=== PATIENT | female | born 1955 | race African-American/Black ===

== ENCOUNTER 2018-01-09 17:45 | Emergency (ER) | payer OTHER, MEDICAID ==
[~2018-01-09] VITALS: Ht 157.5 cm; Wt 103.0 kg
[~2018-01-09 17:45] MED LIST: ADVA250A INH; ALBU6.7H INH; BENA5TAB PO; CIPR500T4 PO; CYMB30CA PO; GLUCTAB PO; HYDR-3533 PO; LEVEINJ SQ; LINA290C PO; LORTA10 PO; METR-1 PO; NEBI20 PO; NITR0.4S SL; SOMA350T PO; ZOLP10TA3 PO; ZYPR5TAB PO
[2018-01-09 17:57] VITALS: BP 136/69; PULSE 73; RESP 18; TEMP 98.3; O2SAT 100
[2018-01-09 19:33] LABS: BILIRUBIN, URINE NEG (NEG); BLOOD, URINE NEG (NEG); GLUCOSE,URINE NEG (NEG); KETONE, URINE NEG (NEG); NITRITE,URINE NEG (NEG); PH, URINE 7.5 (5.0-8.5); SQUAMOUS EPITHELIAL CELL URINE 4 /hpf (0-5); URINE COLOR YELLOW (YELLW/STRAW); URINE LEUKOCYTE ESTERASE NEG (NEG)
[2018-01-09 19:39] VITALS: BP_SYST 190; BP_SYST 200; BP_DIAS 81; PULSE 64; RESP 20; O2SAT 100
[2018-01-09 19:48] LABS: ALT (GPT) 19 U/L (10-53)
[2018-01-09] MEDS ORDERED: METF500T PO (19:49)
[2018-01-09] MEDS ORDERED: PREG25 PO (19:49)
[2018-01-09] MEDS ORDERED: AMBI10TA PO (19:49)
[2018-01-09] MEDS ORDERED: OMEP20TA93 PO (19:49)
[2018-01-09] MEDS ORDERED: ALBU6.7H INH (19:49)
[2018-01-09] MEDS ORDERED: HYDR-3516 PO (19:49)
[2018-01-09] MEDS ORDERED: NEBI20 PO (19:49)
[2018-01-09] MEDS ORDERED: LEVEMIR SQ (19:49)
[2018-01-09] MEDS ORDERED: ADVA250A INH (19:49)
[2018-01-09] MEDS ORDERED: SOMA250T PO (19:49)
--- NOTE | 2018-01-09 19:50 | RADRPT ---
EXAM DATE: 01/09/2018 7:25 PM EDT AGE/SEX: 62 years / Female INDICATIONS: Generalized weakness. Blurry vision. CLINICAL DATA: This is the patient's initial encounter. Patient reports that signs and symptoms have been present for 1 day and indicates a pain score of 0/10. MEDICAL/SURGICAL HISTORY: Diabetes. Cerebrovascular disease. Hypertension. Appendectomy. Cholecy stectomy. Hysterectomy. RADIATION DOSE: 37.54 CTDI (mGy) COMPARISON: [facility] – [place], CT BRAIN W/O CONTRAST, 11/25/2011. . TECHNIQUE: CT of the head without contrast. Using automated exposure control and adjustment of the mA and/or kV according to patient size, radiation dose was kept as low as reasonably achievable to ob tain optimal diagnostic quality images. FINDINGS: Cerebrum: The ventricles are normal for age. No evidence of midline shift, mass lesion, hemorrhage or acute infarction. No extraaxial fluid collections are seen. Posterior Fossa: The cerebellum and brainstem are intact. The 4th ventricle is midline. The cerebe llopontine angle is unremarkable. Extracranial: The visualized portion of the orbits is intact. Skull: The calvaria is intact. No evidence of skull fracture. CONCLUSION: 1. Negative noncontrast head CT Electronically signed by: Jordan Bolden MD 01/09/2018 7:49 PM EDT
[2018-01-09 19:53] LABS: AUTOMATED NEUTROPHIL # 5.5 TH/MM3 (1.8-7.7); BASOPHIL # 0.1 TH/MM3 (0-0.2); BASOPHIL % 1.3 % (0.0-2.0); EOSINOPHIL # 0.1 TH/MM3 (0-0.4); EOSINOPHIL % 1.4 % (0.0-4.0); HEMATOCRIT 36.4 % (35.0-46.0); HEMOGLOBIN 12.4 GM/DL (11.6-15.3); LYMPH % 29.9 % (9.0-44.0); LYMPHOCYTE # 2.8 TH/MM3 (1.0-4.8); MEAN CORPUSCULAR HEMOGLOBIN 30.7 PG (27.0-34.0); MEAN CORPUSCULAR HGB CONC 34.1 % (32.0-36.0); MEAN PLATELET VOLUME 11.3 FL (7.0-11.0); MONO % 9.2 % (0.0-8.0); MONOCYTE # 0.9 TH/MM3 (0-0.9); NEUT % 58.2 % (16.0-70.0); PLATELET COUNT 224 TH/MM3 (150-450); RED BLOOD COUNT 4.05 MIL/MM3 (4.00-5.30); RED CELL DISTRIBUTION WIDTH 13.7 % (11.6-17.2); WHITE BLOOD COUNT 9.4 TH/MM3 (4.0-11.0)
[2018-01-09 20:12] LABS: ALBUMIN 3.1 GM/DL (3.4-5.0); ALKALINE PHOSPHATASE 102 U/L (45-117); AST (GOT) 29 U/L (15-37); BICARBONATE 24.9 MEQ/L (21.0-32.0); BLOOD UREA NITROGEN 19 MG/DL (7-18); CALCIUM 9.4 MG/DL (8.5-10.1); CHLORIDE 107 MEQ/L (98-107); CREATININE 0.94 MG/DL (0.50-1.00); GLOMERULAR FILTRATION RATE 73 ML/MIN (>89); GLUCOSE,RANDOM 135 MG/DL (74-106); MAGNESIUM 1.7 MG/DL (1.5-2.5); SODIUM (NA) 142 MEQ/L (136-145); TOTAL BILIRUBIN ADULT 0.4 MG/DL (0.2-1.0); TOTAL PROTEIN 7.1 GM/DL (6.4-8.2); TROPONIN I LESS THAN 0.02 NG/ML (0.02-0.05)
[2018-01-09 20:25] VITALS: BP_SYST 207; BP_SYST 223; BP_SYST 231; BP_DIAS 100; BP_DIAS 86; RESP 16; RESP 18; RESP 20
[2018-01-09] MEDS ORDERED: cloNIDine HCL 0.1 MG TAB PO ONE (20:30)
[2018-01-09 21:00] VITALS: BP 196/87; PULSE 63; RESP 18; O2SAT 99
--- NOTE | 2018-01-09 21:11 | RADRPT ---
EXAM DATE: 01/09/2018 8:44 PM EDT AGE/SEX: 62 years / Female INDICATIONS: Syncopal episode. CLINICAL DATA: This is the patient's initial encounter. Patient reports that signs and symptoms have been present for 1 day and indicates a pain score of 0/10. MEDICAL/SURGICAL HISTORY: . Hypertension. Chronic obstructive pulmonary disease. Asthma. None . COMPARISON: [facility] – [place], CHEST SINGLE AP, 10/22/2015. . FINDINGS: A single AP view of the chest demonstrates the lungs to be symmetrically aerated without evidence of mass, infiltrate or effusion. The cardiomediastinal contours are unremarkable. Osseous structures a re intact. There are overlying electrocardiogram leads. CONCLUSION: No acute cardiopulmonary disease. Electronically signed by: Jordan Bolden MD 01/09/2018 9:10 PM EDT
[2018-01-09] MEDS ORDERED: MECL-62 PO (21:20)
--- NOTE | 2018-01-09 21:22 | PD ---
HPI Chief Complaint: Eye Problems/Injury Time Seen by Provider: 18:15 Travel History International Travel<30 days: No Contact w/Intl Traveler<30days: No Traveled to known affect area: No History of Present Illness HPI 62-year-old female that presents to the ED for evaluation of dizziness and blurred vision. The patient has had the dizziness for 3 weeks now. 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 She was told that his sugars continue to be taking care of her and she was started on a new regimen of medications. She apparently was put on insulin Levemir as well as NovoLog was told to take her medications as prescribed. She went from sugars in the 300s to sugars in the 100s ever since she is having dizziness when she stands. Otherwise she has no symptoms. States that she feels blurry vision for the past couple of days. She states it was pressure-like. No headache. 3 days ago she has mild chest discomfort went away on its own. The patient has had the chest before she was concerned. She states that she has not had any palpitations or chest pain today. No urinary or bowel movement issues. No abdominal pain. She states that she has an appointment with her eye doctor on Friday to get her eyes but she was concerned because the symptoms continue. She came here to get evaluated. Currently she has no pain. No symptoms other than blurry vision PFSH Past Medical History Arthritis: Yes Asthma: Yes Autoimmune Disease: Yes ( ) Blood Disorders: No Bipolar Disorder: Yes Anxiety: Yes Depression: Yes Heart Rhythm Problems: No Cancer: No Cardiac Catheterization: Yes (IN [address] ORTA) Cardiovascular Problems: Yes (htn) High Cholesterol: Yes Chemotherapy: No Chest Pain: Yes Congestive Heart Failure: No COPD: Yes Cerebrovascular Accident: Yes (tias) Diabetes: Yes Patient Takes Glucophage: No Diminished Hearing: No Endocrine: Yes Gastrointestinal Disorders: Yes (GASTROPARESIS) GERD: No Glaucoma: No Genitourinary: No Headaches: Yes Hepatitis: No Hiatal Hernia: No Heparin Induced Thrombocytopen: No Hypertension: Yes Immune Disorder: No Kidney Stones: No Musculoskeletal: Yes (PAINFUL JOINTS, FIBROMYALGIA) Neurologic: Yes (POOR MEMORY, ON LIFE SUPPORT 2010, HX OF TIA'S) Psychiatric: Yes (DEPRESSION) Respiratory: Yes (asthma) Integumentary: Yes ( ) Immunizations Current: Yes Migraines: No Myocardial Infarction: No Radiation Therapy: No Renal Failure: No Seizures: No Sleep Apnea: No Thyroid Disease: No Ulcer: No PNEUMOCCOCAL Vaccine (Year): 2 ?: Not Menopausal: No Past Surgical History Abdominal Surgery: Yes (LAP KEVIN, APPENDECTOMY) AICD: No Appendectomy: Yes Arteriovenous Shunt: No Body Medical Devices: spinal cord stimulator Cardiac Surgery: No Cholecystectomy: Yes Coronary Artery Bypass Graft: No Ear Surgery: No Endocrine Surgery: No Eye Surgery: No Genitourinary Surgery: No Gynecologic Surgery: Yes (HYSTERECTOMY) Hysterectomy: Yes Insulin Pump: No Joint Replacement: No Neurologic Surgery: Yes (SPINAL CORD STIMULATOR REMOVED) Oral Surgery: No Pacemaker: No Other Surgery: Yes (RIGHT ARM SURGERY SHOULDER) Social History Alcohol Use: No (never) Tobacco Use: No (never) Substance Use: No Allergies-Medications (Allergen,Severity, Reaction): Coded Allergies: Sulfa (Sulfonamide Antibiotics) (Unverified Allergy, Severe, RASH, 03/25/17 ) amlodipine (Unverified Allergy, Severe, Swelling, 03/25/17) erythromycin base (Unverified Allergy, Unknown, UNKNOWN, 03/25/17) Reported Meds & Prescriptions Reported Meds & Active Scripts Active Meclizine (Meclizine HCl) 25 Mg Tab 25 Mg PO TID PRN Reported Lyrica (Pregabalin) 25 Mg Cap Unknown Dose PO DAILY Omeprazole 20 Mg Tab 20 Mg PO DAILY Ambien (Zolpidem Tartrate) 10 Mg Tab 10 Mg PO HS PRN Bystolic (Nebivolol) 20 Mg Tab 20 Mg PO DAILY Metformin (Metformin HCl) 500 Mg Tab 500 Mg PO BIDPC Levemir Inj (Insulin Detemir) 1,000 unit/ 10 ML Vial 30 Units SQ DAILY Do not mix with any other Insulin. Hydrocodone-Acetaminophen 5-325 mg Tab 1 Tab PO Q6H PRN Advair Diskus Inh (Fluticasone-Salmeterol Inh) 250-50 Mcg/Blist Aer 1 Puff INH BID Rinse mouth after use. Soma (Carisoprodol) 250 Mg Tab 250 Mg PO QID PRN Proventil Hfa 6.7 GM Inh (Albuterol Sulfate) 90 Mcg/Act Aer 2 Puff INH Q4-6H PRN Review of Systems Except as stated in HPI: all other systems reviewed are Neg Physical Exam Narrative GENERAL: SKIN: Warm and dry. HEAD: Atraumatic. Normocephalic. EYES: Pupils equal and round 4 mm reactive to light and accommodation. No scleral icterus. No injection or drainage. EOM intact bilaterally. ENT: No nasal bleeding or discharge. Mucous membranes pink and moist. Tongue is midline. No uvula deviation. NECK: Trachea midline. No JVD. CARDIOVASCULAR: Regular rate and rhythm. No murmurs, S4. s3 RESPIRATORY: No accessory muscle use. Clear to auscultation. Breath sounds equal bilaterally. GASTROINTESTINAL: Abdomen soft, non-tender, nondistended. Hepatic and splenic margins not palpable. MUSCULOSKELETAL: Extremities without clubbing, cyanosis, or edema. No obvious deformities. Full range of motion of the upper and lower extremities bilaterally. 2+ pulses bilaterally. NEUROLOGICAL: Awake and alert. No obvious cranial nerve deficits. Motor grossly within normal limits. Five out of 5 muscle strength in the arms and legs. Normal speech. PSYCHIATRIC: Appropriate mood and affect; insight and judgment normal. Data Data Last Documented VS Vital Signs Date Time Temp Pulse Resp B/P (MAP) Pulse Ox O2 Delivery O2 Flow Rate FiO2 01/09/18 21:32 65 176/62 (100) 01/09/18 21:00 18 99 Room Air 01/09/18 17:57 98.3 Orders Orders Complete Blood Count With Diff (01/09/18 18:15) Comprehensive Metabolic Panel (01/09/18 18:15) Urinalysis - C+S If Indicated (01/09/18 18:15) Magnesium (Mg) (01/09/18 18:15) Beta Hydroxybutyrate (Acetone) (01/09/18 18:15) Ct Brain W/O Iv Contrast(Rout) (01/09/18 18:15) Electrocardiogram (01/09/18 ) Chest, Single Ap (01/09/18 ) Ckmb (Isoenzyme) Profile (01/09/18 19:15) Troponin I (01/09/18 19:15) CKMB (01/09/18 19:15) CKMB% (01/09/18 19:15) Orthostatic Vital Signs (01/09/18 20:23) Clonidine (Catapres) (01/09/18 20:30) Ed Discharge Order (01/09/18 21:19) Labs Laboratory Tests Test 01/09/18 19:15 White Blood Count 9.4 TH/MM3 Red Blood Count 4.05 MIL/MM3 Hemoglobin 12.4 GM/DL Hematocrit 36.4 % Mean Corpuscular Volume 90.0 FL Mean Corpuscular Hemoglobin 30.7 PG Mean Corpuscular Hemoglobin Concent 34.1 % Red Cell Distribution Width 13.7 % Platelet Count 224 TH/MM3 Mean Platelet Volume 11.3 FL Neutrophils (%) (Auto) 58.2 % Lymphocytes (%) (Auto) 29.9 % Monocytes (%) (Auto) 9.2 % Eosinophils (%) (Auto) 1.4 % Basophils (%) (Auto) 1.3 % Neutrophils # (Auto) 5.5 TH/MM3 Lymphocytes # (Auto) 2.8 TH/MM3 Monocytes # (Auto) 0.9 TH/MM3 Eosinophils # (Auto) 0.1 TH/MM3 Basophils # (Auto) 0.1 TH/MM3 CBC Comment AUTO DIFF Differential Comment AUTO DIFF CONFIRMED Platelet Estimate NORMAL Platelet Morphology Comment ENLARGED Urine Color YELLOW Urine Turbidity CLEAR Urine pH 7.5 Urine Specific [place] 1.017 Urine Protein NEG mg/dL Urine Glucose (UA) NEG mg/dL Urine Ketones NEG mg/dL Urine Occult Blood NEG Urine Nitrite NEG Urine Bilirubin NEG Urine Urobilinogen LESS THAN 2.0 MG/DL Urine Leukocyte Esterase NEG Urine WBC LESS THAN 1 /hpf Urine Squamous Epithelial Cells 4 /hpf Microscopic Urinalysis Comment CULT NOT INDICATED Blood Urea Nitrogen 19 MG/DL Creatinine 0.94 MG/DL Random Glucose 135 MG/DL Total Protein 7.1 GM/DL Albumin 3.1 GM/DL Calcium Level 9.4 MG/DL Magnesium Level 1.7 MG/DL Alkaline Phosphatase 102 U/L Aspartate Amino Transf (AST/SGOT) 29 U/L Alanine Aminotransferase (ALT/SGPT) 19 U/L Total Bilirubin 0.4 MG/DL Sodium Level 142 MEQ/L Potassium Level 4.3 MEQ/L Chloride Level 107 MEQ/L Carbon Dioxide Level 24.9 MEQ/L Anion Gap 10 MEQ/L Estimat Glomerular Filtration Rate 73 ML/MIN Total Creatine Kinase 107 U/L Creatine Kinase MB 0.9 NG/ML Troponin I LESS THAN 0.02 NG/ML B-Hydroxybutyrate 0.14 MMOL/L [facility] Medical Decision Making Medical Screen Exam Complete: Yes Emergency Medical Condition: Yes Medical Record Reviewed: Yes Interpretation(s) CBC & BMP Diagram 01/09/18 19:15 Total Protein 7.1, Albumin 3.1 L, Calcium Level 9.4, Magnesium Level 1.7, Alkaline Phosphatase 102, Aspartate Amino Transf (AST/SGOT) 29, Alanine Aminotransferase (ALT/SGPT) 19, Total Bilirubin 0.[address] 01/09/18 1815 Signed Impressions: CONCLUSION: 1. Negative noncontrast head CT Chest X-Ray 01/09/18 0000 Signed Impressions: CONCLUSION: No acute cardiopulmonary disease. EKG showed sinus rythm but no sign of acute disease or ischemia read by me and attending troponin and CKMB negative Differential Diagnosis Dizziness versus ischemia versus hypoglycemia versus dehydration versus typical chest pain versus CVA versus TIA versus diabetes complaint Narrative Course 62-year-old female that presents to the ED for evaluation of dizziness and blurred vision. Patient was properly examined and was found to have signs and symptoms of unclear etiology. Labs and imaging order... Patient was found to be slightly hypotensive. The symptoms do suspect that it might be related to his sugars as her medications have been recently changed she used to be routinely in the sugars in the 200 [address] My attending Dr Conley evaluated the patient agrees with discharge plan with follow up to PCP. Will prescribe meclizine to cover for vertigo. She already has an appointment with eye doctor on friday. She understands she needs to follow up with eye doctor. Told to monitor blood sugars daily especially with symptoms to evaluate whether she might be hypoglycemic. See ED if worsening symptoms. Diagnosis Primary Impression: Dizziness Additional Impression: Blurry vision Patient Instructions: General Instructions Additional Instructions: Follow up with PCP. See ED if worsening symptoms. Take med as prescribed. Monitor your blood sugar and make sure it is not going below 100. Med/Other Pt SpecificInfo: Prescription(s) given Scripts Meclizine (Meclizine) 25 Mg Tab 25 MG PO TID Y for VERTIGO, #12 TAB 0 Refills Prov: Cruz Vasquez MD 01/09/18 Disposition: 01 DISCHARGE HOME Condition: Stable Jerad Sen Jan 09, 2018 21:22
[2018-01-09 21:32] VITALS: BP 176/62; PULSE 65
--- NOTE | 2018-01-09 21:43 | PD ---
Physical Exam Date Seen by Provider: Jan 09, 2018 Time Seen by Provider: 19:00 Narrative I, Dr. Vasquez, have reviewed the advance practice practitioner's documentation and am in agreement, met with the patient face to face, made the diagnosis, and the medical decision making was done by me. *My assessment and Findings: Patient seen and evaluated with PA, please see PA notes for further details. She is here for lightheadedness, blurry vision, recently had changes made to her diabetes medications. It was noted that her blood pressure is fairly high in the ER and had been given clonidine. She has no focal neurological deficits, is ambulatory in the ER without issues. EKG did not show acute dysrhythmias. Vital signs are stable otherwise. Lab work was fairly unremarkable. She has no focal neurological deficits. Laboratory Tests Test 01/09/18 19:15 Mean Platelet Volume 11.3 FL (7.0-11.0) Monocytes (%) (Auto) 9.2 % (0.0-8.0) Platelet Morphology Comment ENLARGED (NORMAL) Blood Urea Nitrogen 19 MG/DL (7-18) Random Glucose 135 MG/DL (74-106) Albumin 3.1 GM/DL (3.4-5.0) Estimat Glomerular Filtration Rate 73 ML/MIN (>89) Troponin I LESS THAN 0.02 NG/ML Last [address] 01/09/18 1815 Signed Impressions: CONCLUSION: 1. Negative noncontrast head CT Chest X-Ray 01/09/18 0000 Signed Impressions: CONCLUSION: No acute cardiopulmonary disease. At this point, we have discussed the findings with the patient and plan would be to release her with follow-up to primary care doctor. She will need to be reevaluated for her elevated blood pressures, she will need to take her evening medications, and may need changes to her medications should blood pressure continue to be elevated. The plan was discussed with the patient and she states understanding. Data Data Last Documented VS Vital Signs Date Time Temp Pulse Resp B/P (MAP) Pulse Ox O2 Delivery O2 Flow Rate FiO2 01/09/18 21:32 65 176/62 (100) 01/09/18 21:00 18 99 Room Air 01/09/18 17:57 98.3 Orders Orders Complete Blood Count With Diff (01/09/18 18:15) Comprehensive Metabolic Panel (01/09/18 18:15) Urinalysis - C+S If Indicated (01/09/18 18:15) Magnesium (Mg) (01/09/18 18:15) Beta Hydroxybutyrate (Acetone) (01/09/18 18:15) Ct Brain W/O Iv Contrast(Rout) (01/09/18 18:15) Electrocardiogram (01/09/18 ) Chest, Single Ap (01/09/18 ) Ckmb (Isoenzyme) Profile (01/09/18 19:15) Troponin I (01/09/18 19:15) CKMB (01/09/18 19:15) CKMB% (01/09/18 19:15) Orthostatic Vital Signs (01/09/18 20:23) Clonidine (Catapres) (01/09/18 20:30) Ed Discharge Order (01/09/18 21:19) Labs Laboratory Tests Test 01/09/18 19:15 White Blood Count 9.4 TH/MM3 Red Blood Count 4.05 MIL/MM3 Hemoglobin 12.4 GM/DL Hematocrit 36.4 % Mean Corpuscular Volume 90.0 FL Mean Corpuscular Hemoglobin 30.7 PG Mean Corpuscular Hemoglobin Concent 34.1 % Red Cell Distribution Width 13.7 % Platelet Count 224 TH/MM3 Mean Platelet Volume 11.3 FL Neutrophils (%) (Auto) 58.2 % Lymphocytes (%) (Auto) 29.9 % Monocytes (%) (Auto) 9.2 % Eosinophils (%) (Auto) 1.4 % Basophils (%) (Auto) 1.3 % Neutrophils # (Auto) 5.5 TH/MM3 Lymphocytes # (Auto) 2.8 TH/MM3 Monocytes # (Auto) 0.9 TH/MM3 Eosinophils # (Auto) 0.1 TH/MM3 Basophils # (Auto) 0.1 TH/MM3 CBC Comment AUTO DIFF Differential Comment AUTO DIFF CONFIRMED Platelet Estimate NORMAL Platelet Morphology Comment ENLARGED Urine Color YELLOW Urine Turbidity CLEAR Urine pH 7.5 Urine Specific [place] 1.017 Urine Protein NEG mg/dL Urine Glucose (UA) NEG mg/dL Urine Ketones NEG mg/dL Urine Occult Blood NEG Urine Nitrite NEG Urine Bilirubin NEG Urine Urobilinogen LESS THAN 2.0 MG/DL Urine Leukocyte Esterase NEG Urine WBC LESS THAN 1 /hpf Urine Squamous Epithelial Cells 4 /hpf Microscopic Urinalysis Comment CULT NOT INDICATED Blood Urea Nitrogen 19 MG/DL Creatinine 0.94 MG/DL Random Glucose 135 MG/DL Total Protein 7.1 GM/DL Albumin 3.1 GM/DL Calcium Level 9.4 MG/DL Magnesium Level 1.7 MG/DL Alkaline Phosphatase 102 U/L Aspartate Amino Transf (AST/SGOT) 29 U/L Alanine Aminotransferase (ALT/SGPT) 19 U/L Total Bilirubin 0.4 MG/DL Sodium Level 142 MEQ/L Potassium Level 4.3 MEQ/L Chloride Level 107 MEQ/L Carbon Dioxide Level 24.9 MEQ/L Anion Gap 10 MEQ/L Estimat Glomerular Filtration Rate 73 ML/MIN Total Creatine Kinase 107 U/L Creatine Kinase MB 0.9 NG/ML Troponin I LESS THAN 0.02 NG/ML B-Hydroxybutyrate 0.14 MMOL/L [facility] Medical Record Reviewed: Yes Supervised Visit with BENEDICTO: Yes Diagnosis Primary Impression: Dizziness Additional Impressions: Blurry vision Hypertension Patient Instructions: General Instructions, Blurred Vision (ED), Dizziness (ED) Departure Forms: Tests/Procedures Additional Instruction: Follow up with PCP. See ED if worsening symptoms. Take med as prescribed. Monitor your blood sugar and make sure it is not going below 100. Scripts Meclizine (Meclizine) 25 Mg Tab 25 MG PO TID Y for VERTIGO, #12 TAB 0 Refills Prov: Cruz Vasquez MD 01/09/18 Disposition: 01 DISCHARGE HOME Condition: Stable Cruz Vasquez MD Jan 09, 2018 21:43
--- NOTE | 2018-01-10 14:37 | EKG ---
Date Performed: 01/09/2018 Time Performed: 19:07:18 PTAGE: 62 years EKG: SINUS BRADYCARDIA NONSPECIFIC ST & T-WAVE ABNORMALITY ABNORMAL ECG PREVIOUS TRACING : 03/09/2015 10.31 Since the previous tracing, no significant change noted DOCTOR: Duke Brown Interpretating Date/Time 01/10/2018 14:36:47
== END 2018-01-09 21:35 | disposition home or self-care (01) ==
LOC: NEPE 17:45
DX: R42 Dizziness and giddiness (principal); H53.8 Other visual disturbances; R07.89 Other chest pain; R00.1 Bradycardia, unspecified; R94.31 Abnormal electrocardiogram [ECG] [EKG]; I10 Essential (primary) hypertension; J44.9 Chronic obstructive pulmonary disease, unspecified; E11.9 Type 2 diabetes mellitus without complications; F31.9 Bipolar disorder, unspecified
CPT/HCPCS: 70450; 71045; 80053; 81001; 82010; 82550; 82552; 83735; 84484; 85025; 93005